=== PATIENT | male | born 1985 | race Hispanic/Latino ===

== ENCOUNTER 2016-05-04 06:07 | Emergency (ER) | payer SELFPAY ==
[~2016-05-04] VITALS: Ht 175.3 cm; Wt 83.7 kg
[~2016-05-04 06:07] MED LIST: ATARAX,VISTARIL50 MG PO; FLEXERIL10 MG PO; NOHOMEMEDS; ZOFRAN4 MG PO
[2016-05-04 08:40] VITALS: BP 162/102
== END 2016-05-04 08:42 | disposition home or self-care (01) ==
LOC: EME 06:07
PROC: 0HQFXZZ Repair Right Hand Skin, External Approach (ICD-10-PCS; principal; 2016-05-04)
PROC: 3E0234Z Introduction of Serum, Toxoid and Vaccine into Muscle, Percutaneous Approach (ICD-10-PCS; 2016-05-04)
DX: S61.216A Laceration without foreign body of right little finger without damage to nail, initial encounter (principal); W25.XXXA Contact with sharp glass, initial encounter; Z23 Encounter for immunization; F17.200 Nicotine dependence, unspecified, uncomplicated
CPT/HCPCS: 99281; 99283